=== PATIENT | male | born 1980 | race Two or more races ===

== ENCOUNTER → 2024-09-26 07:28 | Outpatient (REF) | payer BC, SELFPAY | LOC: HWRAD 07:28 | PROVIDERS: ATTENDING PHYSICIAN Otolaryngology; FAMILY PHYSICIAN Internal Medicine | DX: R06.02 Shortness of breath (principal) | CPT/HCPCS: 71046 ==

== ENCOUNTER → 2024-10-03 16:31 | Outpatient (REF) | payer BC, SELFPAY | LOC: RAD 16:31 | PROVIDERS: ATTENDING PHYSICIAN Family Medicine | DX: R59.1 Generalized enlarged lymph nodes (principal); Z85.850 Personal history of malignant neoplasm of thyroid | CPT/HCPCS: 71260; 74178; Q9967 ==

== ENCOUNTER → 2024-10-22 07:09 | Outpatient (REF) | payer BC, SELFPAY | LOC: HWRCS 07:09 | PROVIDERS: ATTENDING PHYSICIAN Internal Medicine Hematology & Oncology; FAMILY PHYSICIAN Internal Medicine | DX: R59.1 Generalized enlarged lymph nodes (principal) | CPT/HCPCS: 93306 ==

== ENCOUNTER → 2024-10-22 10:56 | Outpatient (REF) | payer BC, SELFPAY ==
[2024-10-22 11:05] VITALS: BP 142/87; BP_SYST 80
== END ==
LOC: RADI 10:56
PROVIDERS: ATTENDING PHYSICIAN Internal Medicine Hematology & Oncology
DX: C82.05 Follicular lymphoma grade I, lymph nodes of inguinal region and lower limb (principal)
CPT/HCPCS: 88305; 38505; 76942; 88333; 88341; 88342

== ENCOUNTER → 2024-11-09 09:33 | Outpatient (REF) | payer BC, SELFPAY ==
[2024-11-09 09:50] LABS: % Basophils 0.7 % (0-2); % Eosinophils 3.9 % (0-6); % Immature Granulocytes 0.2 % (0-0.5); % Lymphocytes 35.9 % (20.5-51.1); % Monocytes 10.6 % (1.7-9.3); % Neutrophils 48.7 % (42.2-75.2); Absolute Eosinophils 0.2 10^3/uL (0-0.7); Absolute Lymphocytes 1.6 10^3/uL (1.2-3.4); Absolute Monocytes 0.5 10^3/uL (0.1-0.6); Absolute Neutrophils 2.1 10^3/uL (1.4-6.5); Hematocrit 47.6 % (39.0-52.0); Hemoglobin 16.1 g/dL (13.0-18.0); Mean Corp Hgb Conc. 33.8 g/dL (33.0-37.0); Mean Corpuscular Hgb 28.4 pg (27.0-31.0); Mean Platelet Volume 10.9 fL (7.4-10.4); Nucleated Red Blood Cells % 0 % (-); Platelet Count 207 10^3/uL (130-400); Red Blood Cell Count 5.67 10^6/uL (4.70-6.10); Red Cell Dist. Width 13.1 % (11.5-14.5); White Blood Cell Count 4.3 10^3/uL (4.8-10.8)
[2024-11-09 09:59] VITALS: BP 134/91; BP_SYST 84
[2024-11-09 09:59] LABS: INR 0.99; PT 13.4 Sec (11.4-14.6)
[2024-11-09] MEDS: NSS (PRESERVATIVE FREE) 0.25 ML IV (10:37)
[2024-11-09] MEDS: ATIVAN 0.5 MG IV (10:37)
[2024-11-09 11:35] VITALS: BP 138/96; BP_SYST 64
[2024-11-09 11:47] VITALS: BP 107/75
== END ==
LOC: RADI 09:33
PROVIDERS: ATTENDING PHYSICIAN Internal Medicine Hematology & Oncology; FAMILY PHYSICIAN Internal Medicine
DX: R59.0 Localized enlarged lymph nodes (principal); D68.8 Other specified coagulation defects
CPT/HCPCS: 88305; 88311; 88312; 36415; 38222; 77012; 85025; 85610; 88313

== ENCOUNTER → 2025-03-12 07:45 | Outpatient (REF) | payer BC, SELFPAY | LOC: RCS 07:45 | PROVIDERS: ATTENDING PHYSICIAN Internal Medicine Cardiovascular Disease; FAMILY PHYSICIAN Internal Medicine | DX: R06.02 Shortness of breath (principal); R53.83 Other fatigue; R94.31 Abnormal electrocardiogram [ECG] [EKG]; E78.00 Pure hypercholesterolemia, unspecified; C83.00 Small cell B-cell lymphoma, unspecified site | CPT/HCPCS: 93017 ==

== ENCOUNTER → 2025-06-04 08:10 | Outpatient (REF) | payer BC, SELFPAY | LOC: RCS 08:10 | PROVIDERS: ATTENDING PHYSICIAN Internal Medicine Cardiovascular Disease; FAMILY PHYSICIAN Internal Medicine | DX: R53.83 Other fatigue (principal); R06.02 Shortness of breath; R94.39 Abnormal result of other cardiovascular function study | CPT/HCPCS: 93017; 93350 ==